=== PATIENT | male | born 1940 | race Caucasian/White ===

== ENCOUNTER 2018-05-06 19:49 | Observation (INO) | payer OTHER, BC ==
[~2018-05-06] VITALS: Ht 167.6 cm; Wt 58.6 kg
[2018-05-06 21:04] LABS: BASOPHIL (%) 0.4 % (0-1); EOSINOPHIL (%) 4.2 % (0-5); EOSINOPHIL COUNT 0.2 K/uL (0-0.3); HEMATOCRIT 34.9 % (38.0-50.0); HEMOGLOBIN 11.5 G/DL (12.5-16.6); IMMATURE GRANULOCYTE (%) 0.4 % (0.0-0.7); LYMPHOCYTE (%) 38.7 % (15-42); MCV 91.1 FL (86-99); MONOCYTE (%) 12.6 % (3-12); MONOCYTE COUNT 0.6 K/uL (0-0.8); NEUTROPHIL (%) 43.7 % (45-76); NEUTROPHIL COUNT 2.2 K/uL (1.8-6.4); PLATELET COUNT 121 K/uL (156-360); RBC DIS.WIDTH-CV 13.2 % (11.8-14.6); RBC DIS.WIDTH-SD 43.5 % (39-53); RED BLOOD COUNT 3.83 M/uL (4.00-5.50); WHITE BLOOD COUNT 5.1 K/uL (4.1-10.2)
[2018-05-06 21:18] LABS: CHLORIDE 107 mEq/L (99-109); POTASSIUM 4.5 mEq/L (3.7-5.4); SODIUM 138 mEq/L (136-147)
[2018-05-06 21:20] LABS: GLUCOSE 72 mg/dL (70-99)
[2018-05-06 21:23] LABS: GFR ESTIMATE (CALCULATED) > 59 mL/min/ (58.99-99999)
[2018-05-06 21:24] LABS: UREA NITROGEN (BUN) 23 mg/dL (9-23)
[2018-05-06 21:29] LABS: TROP-I INTERPRETATION NEGATIVE; TROPONIN-I < 0.01 ng/mL (0.0-0.30)
[2018-05-07 01:39] LABS: ALBUMIN 3.6 G/DL (3.2-4.8); ALKALINE PHOSPHATASE 73 IU/L (3-129); ALT (GPT) 11 IU/L (3-49); AST (GOT) 18 IU/L (2-34); DIRECT BILIRUBIN 0.1 mg/dL (0.0-0.3); TOTAL BILIRUBIN 0.3 MG/DL (0.0-1.0); TOTAL PROTEIN 5.9 G/DL (6.4-8.3)
[2018-05-07 05:19] LABS: TROP-I INTERPRETATION NEGATIVE; TROPONIN-I < 0.01 ng/mL (0.0-0.30)
[2018-05-07 05:20] VITALS: BP 152/72
[2018-05-07 07:19] LABS: LIPASE 68 U/L (1.0-51.0)
[2018-05-07 07:50] VITALS: BP 162/80
[2018-05-07 08:20] LABS: TROP-I INTERPRETATION NEGATIVE; TROPONIN-I < 0.01 ng/mL (0.0-0.30)
[2018-05-07] MEDS ORDERED: MILK OF MAGN PO (12:14)
[2018-05-07] MEDS ORDERED: GENTLE LAXATIVE10 MG PR (12:15)
[2018-05-07] MEDS ORDERED: LOPRESSOR25 MG PO (12:15)
[2018-05-07] MEDS ORDERED: DUONEB 2.5-0.5 M3 ML AEROSOL (12:17)
[2018-05-07] MEDS ORDERED: CELEXA20 MG PO (12:18)
[2018-05-07] MEDS ORDERED: ASPERCREME1 EACH TP (12:18)
[2018-05-07] MEDS ORDERED: ASPIRIN81 M2 PO (12:18)
[2018-05-07] MEDS ORDERED: RIVASTIGMINE1 EAC1 TD (12:18)
[2018-05-07] MEDS ORDERED: SENNA PLUS TAB1 EACH PO (12:19)
[2018-05-07 12:21] VITALS: BP 129/93
== END 2018-05-07 16:33 ==
LOC: EME → EDBD 19:49 → EDOF 05-07 02:42 → ENRESERV 05-07 02:48 → 4SOUTH 05-07 05:00
PROVIDERS: Emergency Medicine; Internal Medicine
DX: R07.9 Chest pain, unspecified (principal); I95.9 Hypotension, unspecified; F03.90 Unspecified dementia, unspecified severity, without behavioral disturbance, psychotic disturbance, mood disturbance, and anxiety; I49.9 Cardiac arrhythmia, unspecified; Z95.0 Presence of cardiac pacemaker; Z87.891 Personal history of nicotine dependence; Z79.82 Long term (current) use of aspirin
CPT/HCPCS: 71045; 80048; 80076; 83690; 83880; 84484; 85025; 86850; 86900; 86901; 93005; 99281; 99285; G0378; G0480; J1644; J7030